=== PATIENT | male | born 1945 | race Caucasian/White ===

== ENCOUNTER 2016-11-24 08:59 | Day surgery (SDC) | payer MEDICARE ==
[~2016-11-24] VITALS: Ht 177.8 cm; Wt 79.0 kg
[~2016-11-24 08:59] MED LIST: ASPI-973 PO; CAPT25TA3 PO; CeFAZolin 2 Gm/50 mL D5W IV Premix IV ONE; LAMO200T2 PO; Lactated Ringer's 1,000 ML IV SCH; METF1000 PO; MULT-1018 PO; PRAV40TA PO
[2016-11-24 09:19] VITALS: BP 151/85; PULSE 77; RESP 18; O2SAT 97
== END 2016-11-24 23:59 | disposition home or self-care (01) ==
LOC: SAS 08:59
PROVIDERS: ATTEND Plastic Surgery
DX: R22.32 Localized swelling, mass and lump, left upper limb (principal); Z53.09 Procedure and treatment not carried out because of other contraindication